=== PATIENT | female | born 1975 | race Caucasian/White ===

== ENCOUNTER 2018-07-03 14:18 | Emergency (ER) | payer MEDICAID, OTHER ==
[2018-07-03] MEDS: HYDROCODONE/APAP (5/325) TAB PO (16:38)
[2018-07-03 16:47] LABS: ADD MAN DIFF? NO
[2018-07-03 16:52] LABS: BASOPHIL # 0.1 10^3/ul (0.0-0.1); BASOPHILS % 0.7 % (0.0-2.0); EOSINOPHILS # 0.3 10^3/ul (0.0-0.5); EOSINOPHILS % 2.2 % (0.0-7.0); HEMATOCRIT 39.1 % (37.0-47.0); LYMPHOCYTES # 1.8 10^3/ul (0.8-2.9); LYMPHOCYTES % 15.4 % (15.0-51.0); MEAN CORPUSCULAR HEMOGLOBIN 30.6 pg (29.0-33.0); MEAN CORPUSCULAR HGB CONC 33.2 g/dl (32.0-37.0); MEAN PLATELET VOLUME 9.7 fl (7.4-10.4); MONOCYTE # 0.7 10^3/ul (0.3-0.9); MONOCYTES % 6.1 % (0.0-11.0); NEUTROPHIL # 8.8 10^3/ul (1.6-7.5); NEUTROPHILS % 75.3 % (39.0-77.0); PLATELET COUNT 333 10^3/UL (140-415); RED BLOOD COUNT 4.25 10^6/ul (4.20-5.40); RED CELL DISTRIBUTION WIDTH 12.7 % (11.5-14.5)
[2018-07-03 16:52] LABS: WHITE BLOOD COUNT 11.6 10^3/ul (4.8-10.8)
[2018-07-03 16:56] LABS: ADD UMIC YES; UR ASCORBIC ACID NEGATIVE (NEGATIVE); UR BACTERIA FEW /HPF (NONE SEEN); UR BILIRUBIN (Dip) NEGATIVE (NEGATIVE); UR BLOOD (Dip) 1+ mg/dL (NEGATIVE); UR CLARITY SLIGHTLY CLOUDY (CLEAR); UR COLOR YELLOW (YELLOW); UR GLUCOSE (Dip) NEGATIVE (NEGATIVE); UR KETONES (Dip) NEGATIVE (NEGATIVE); UR LEUKOCYTE ESTERASE (Dip) NEGATIVE Leu/ul (NEGATIVE); UR NITRITE (Dip) NEGATIVE (NEGATIVE); UR RBC 3 /HPF (0-5); UR SPECIFIC GRAVITY (Dip) 1.014 (1.003-1.030); UR SQUAMOUS EPITHELIAL CELL FEW /HPF (FEW); UR TOTAL PROTEIN (Dip) NEGATIVE (NEGATIVE); UR UROBILINOGEN (Dip) NEGATIVE (NEGATIVE); UR WBC 1 /HPF (0-5)
[2018-07-03 17:11] LABS: ALANINE AMINOTRANSFERASE 30 IU/L (13-69); ALBUMIN 4.2 g/dl (3.3-4.9); ALKALINE PHOSPHATASE 57 IU/L (42-121); ANION GAP 16 (8-16); ASPARTATE AMINO TRANSFERASE 24 IU/L (15-46); BILIRUBIN,INDIRECT 1.1 mg/dl (0-1.1); BILIRUBIN,TOTAL 1.1 mg/dl (0.2-1.3); BLOOD UREA NITROGEN 10 mg/dl (7-20); CALCIUM 9.6 mg/dl (8.4-10.2); CARBON DIOXIDE 28 mmol/L (21-31); CHLORIDE 102 mmol/L (97-110); CREATININE 0.74 mg/dl (0.44-1.00); GLUCOSE 124 mg/dl (70-220); LIPASE 115 U/L (23-300); POTASSIUM 4.6 mmol/L (3.5-5.1); SODIUM 141 mmol/L (135-144); TOTAL PROTEIN 8.4 g/dl (6.1-8.1)
== END 2018-07-03 18:31 | disposition home or self-care (01) ==
LOC: FTE 14:18
DX: K59.00 Constipation, unspecified (principal)
CPT/HCPCS: 74176; 80053; 81001; 81025; 83690; 85025; 99284-25

== ENCOUNTER 2018-08-09 15:43 | Emergency (ER) | payer MEDICAID ==
[2018-08-09] MEDS: LIDOCAINE 2% VISC 15 ML CUP PO (16:46)
== END 2018-08-09 18:21 | disposition home or self-care (01) ==
LOC: FTE 15:43
DX: J02.9 Acute pharyngitis, unspecified (principal)
CPT/HCPCS: 87880; 99283

== ENCOUNTER 2018-08-16 16:40 | Emergency (ER) | payer MEDICAID | END 2018-08-16 18:06 | disposition home or self-care (01) | LOC: FTE 16:40 | DX: R05 Cough (principal); R40.2412 Glasgow coma scale score 13-15, at arrival to emergency department | CPT/HCPCS: 99283; Z7502 ==

== ENCOUNTER 2019-06-27 17:28 | Emergency (ER) | payer MEDICAID | END 2019-06-27 19:52 | disposition home or self-care (01) | LOC: FTE 17:28 | DX: M79.672 Pain in left foot (principal); M77.32 Calcaneal spur, left foot | CPT/HCPCS: 73630; 73630-LT; 99283-25 ==